=== PATIENT | female | born 1935 | race Caucasian/White ===

== ENCOUNTER → 2018-10-17 14:20 | Outpatient (CLI) | payer MEDICARE, OTHER, SELFPAY ==
[2018-10-17 15:35] LABS: Alanine Aminotransferase 77 IU/L (9-52); Albumin Globulin Ratio 1.5 (1.0-2.8); Alkaline Phosphatase 104 U/L (38-126); Aspartate Aminotransferase 107 IU/L (14-36); Bilirubin Total 0.5 mg/dL (0.2-1.3); Blood Urea Nitrogen 18 mg/dL (7-17); Calcium 9.5 mg/dL (8.4-10.2); Carbon Dioxide 28 mmol/L (22-32); Chloride 99 mmol/L (98-107); Estimated Glomerular Filt Rate > 60.0 mL/min (>60); Globulin 2.7 g/dL (1.7-4.1); Glucose 127 mg/dL (80-110); HEMOLYSIS < 15 (0-50); Potassium 4.5 mmol/L (3.4-5.1); Sodium 137 mmol/L (137-145); Total Protein 6.7 g/dL (6.3-8.2)
[2018-10-17 16:04] LABS: Thyroid Stimulating Hormone 2.31 uIU/mL (0.47-4.68)
== END ==
PROVIDERS: PCP Family Medicine; Visit Provider Internal Medicine Cardiovascular Disease
DX: I42.8 Other cardiomyopathies (principal)
CPT/HCPCS: 36415; 80053; 84443

== ENCOUNTER → 2019-06-25 09:06 | Outpatient (CLI) | payer MEDICARE, OTHER, SELFPAY ==
--- NOTE | 2019-06-25 | DI.ECHO.S_ITS ---
[place] +---------+ [facility] +---------+ : : [address] : : : : [id number] : : : : Phone: [phone]+ Echocardiogram Report + + :Name: AJIT JIN Study Date: 06/25/2019 Height: 63 in : :[facility] Weight: 120 lb : : Gender: Female BSA: 1.6 m2 : :: 1935 Age: 83 yrs BP: 108/58 mmHg: :Reason For Study: Heart Failure : : Performed By: Lilia Miller : :Referring: TAHMINA CONNER : + + Interpretation Summary Left ventricular ejection fraction is estimated to be 30 +/- 5%. Global longitudinal peak systolic strain average of -15.1%. Diastolic parameters suggest a pseudonormalization pattern, consistent with probable elevated filling pressures. There is mild to moderate mitral regurgitation. There is mild aortic regurgitation. There is mild tricuspid regurgitation. Procedure: A two-dimensional transthoracic echocardiogram with color flow and Doppler was performed. There is no prior echocardiogram noted for this patient. The study quality was technically good. The patient was in normal sinus rhythm during the exam. Left Ventricle: The left ventricle is mildly dilated. There is normal left ventricular wall thickness. Left ventricular ejection fraction is estimated to be 30 +/- 5%. Global longitudinal peak systolic strain average of -15.1%. Diastolic parameters suggest a pseudonormalization pattern, consistent with probable elevated filling pressures. Right Ventricle: The right ventricle is normal in size and function. Atria: The left atrium is mildly dilated. Right atrial size is normal. There is no Doppler evidence for an interatrial shunt. Mitral Valve: The mitral valve is normal in structure and function. There is mild mitral annular calcification. There is mild to moderate mitral regurgitation. Aortic Valve: The aortic valve is trileaflet. The aortic valve opens well. There is no aortic valve stenosis. There is mild aortic regurgitation. Tricuspid Valve: The tricuspid valve is normal in structure and function. There is mild tricuspid regurgitation. The right ventricular systolic pressure is estimated to be at least 20 mmHg based on an estimated right atrial pressure of 3 mm Hg. Pulmonic Valve: The pulmonic valve is normal in structure and function. There is no pulmonic valvular regurgitation. Great Vessels: The aortic root is normal size. The dimensions of the ascending aorta are normal. The IVC is of normal diameter and collapses greater than 50% with a sniff. This suggests a low right atrial pressure of 3 mm Hg. Pericardium/ Pleura There is no pericardial effusion. There is no pleural effusion. MMode/2D Measurements & Calculations LVIDd: 5.3 cm LVOT diam: 2.0 cm EPSS: 1.4 cm Ao root diam: 2.8 cm IVSd: 0.96 cm asc Aorta Diam: 3.3 cm LVPWd: 0.70 cm LV blanchard. diameter/BSA (cm/m^2): 3.4 LA A2 area: 22.4 cm2 RA long axis: 4.7 cm LA A4 area: 13.2 cm2 RA area: 12.4 cm2 LA length (vol): 4.7 cm RA vol: 27.5 ml LA vol: 53.8 ml RA : 17.7 ml/m2 LA vol index: 34.6 ml/m2 IVC diam: 0.95 cm RVD1 (basal): 3.0 cm TAPSE: 1.9 cm Doppler Measurements & Calculations Ao V2 max: 174.9 cm/sec LVOT Max Jovi: 72.1 cm/sec Ao V2 mean: 56.5 cm/sec LV V1 max P.1 mmHg Ao max P.2 mmHg LV V1 VTI: 17.2 cm Ao mean P.1 mmHg QIAN(I,D): 1.3 cm2 Ao V2 VTI: 38.4 cm QIAN(V,D): 1.2 cm2 sev ratio: 0.45 QIAN indexed to BSA (cm^2/m^2): 0.86 AI P1/2t: 1109 msec AI dec slope: 101.6 cm/sec2 MV E max jovi: 65.3 cm/sec TR max jovi: 208.4 cm/sec MV A max jovi: 71.8 cm/sec TR max P.4 mmHg MV E/A: 0.91 PA V2 max: 74.1 cm/sec Med Peak E' Jovi: 4.3 cm/sec PA V2 mean: 49.7 cm/sec E/E' med: 15.2 PA mean P.1 mmHg Lat Peak E' Jvoi: 3.5 cm/sec PA pr(Accel): 16.2 mmHg E/E' lat: 18.8 E/e' average: 17.0 MV dec time: 0.28 sec MVA(VTI): 1.7 cm2 MR ERO: 0.12 cm2 MV V2 mean: 51.1 cm/sec MR PISA: 1.8 cm2 MV mean P.2 mmHg MR flow rate: 57.5 cm3/sec MV V2 VTI: 30.6 cm MR PISA radius: 0.54 cm SV(LVOT): 51.4 ml Reading Physician:11:26 AM
== END ==
PROVIDERS: PCP Family Medicine; Referring Provider Internal Medicine Cardiovascular Disease; Visit Provider Internal Medicine Cardiovascular Disease
DX: I08.3 Combined rheumatic disorders of mitral, aortic and tricuspid valves (principal); I50.9 Heart failure, unspecified
CPT/HCPCS: 93306

== ENCOUNTER → 2019-11-20 09:16 | Outpatient (CLI) | payer MEDICARE, OTHER, SELFPAY ==
--- NOTE | 2019-11-20 09:35 | DI.ECHO.S_ITS ---
Echocardiogram Report + + :Name: AJIT JIN Study Date: 11/20/2019 Height: 63 in : :[facility] Weight: 130 lb : : Gender: Female BSA: 1.6 m2 : :: 1935 Age: 84 yrs BP: 128/61 mmHg: :Reason For Study: CARDIOMYOPATHY : :Ordering Physician: JOYCE, : :MASON Performed By: Lilia Miller : :Referring: MASON COOK : + + Interpretation Summary The left ventricle is normal in size and wall thickness. The ejection fraction is estimated to be 40-45%. Compared to the prior exam, the left ventricular function is improved. Diastolic parameters suggest a pseudonormalization pattern, consistent with probable elevated filling pressures. The right ventricle is normal in size and function. There is moderate mitral regurgitation. The mitral regurgitant jet is eccentrically directed. Compared to the prior echo study, there has been an increase in the severity of mitral regurgitation. There is mild tricuspid regurgitation. Pulmonary artery pressures cannot be estimated because of the lack of a measurable TR jet velocity but the IVC suggests a CVP of around 3 mmHg. Procedure: A two-dimensional transthoracic echocardiogram with color flow and Doppler was performed. The study quality was technically adequate. Comparison is made with the echocardiogram of 06/25/2019. The patient was in normal sinus rhythm during the exam. The patient had a bundle branch block rhythm during the exam. Left Ventricle: The left ventricle is normal in size and wall thickness. There is no thrombus. The ejection fraction is estimated to be 40-45%. Left ventricular global longitudinal strain average is 17.0%. Compared to the prior exam, the left ventricular function is improved. There is mild global hypokinesis of the left ventricle. Diastolic parameters suggest a pseudonormalization pattern, consistent with probable elevated filling pressures. Right Ventricle: The right ventricle is normal in size and function. Atria: The left atrium is severely dilated. The left atrium has significantly increased in size since the prior echo exam. Right atrial size is normal. There is no Doppler evidence for an interatrial shunt. Mitral Valve: There is mild to moderate mitral annular calcification. The mitral valve leaflets are mildly calcified. The mitral valve chordae are thickened and/or calcified. There is moderate mitral regurgitation. The mitral regurgitant jet is eccentrically directed. Compared to the prior echo study, there has been an increase in the severity of mitral regurgitation. Aortic Valve: The aortic valve is trileaflet. The aortic valve opens well. There is no aortic valve stenosis. There is trace aortic regurgitation. Tricuspid Valve: The tricuspid valve is normal. Pulmonary artery pressures cannot be estimated because of the lack of a measurable TR jet velocity but the IVC suggests a CVP of around 3 mmHg. There is mild tricuspid regurgitation. Pulmonic Valve: The pulmonic valve leaflets are thin and pliable; valve motion is normal. There is no pulmonic valvular regurgitation. Great Vessels: The aortic root is normal size. The ascending aorta is normal in size. The IVC is of normal diameter and collapses greater than 50% with a sniff. This suggests a low right atrial pressure of 3 mm Hg. Pericardium/ Pleura There is no pericardial effusion. There is no pleural effusion. MMode/2D Measurements & Calculations LVIDd: 4.8 cm LVOT diam: 2.1 cm LVIDs: 4.1 cm Ao root diam: 2.9 cm FS: 16.2 % asc Aorta Diam: 3.2 cm EPSS: 1.6 cm Ao Arch Diam (Prox Trans): 2.4 cm IVSd: 0.88 cm LVPWd: 0.84 cm LV blanchard. diameter/BSA (cm/m^2): 3.0 LV sys. diameter/BSA (cm/m^2): 2.5 LA A2 area: 24.7 cm2 RA long axis: 4.9 cm LA A4 area: 25.7 cm2 RA area: 14.1 cm2 LA length (vol): 5.9 cm RA vol: 34.2 ml LA vol: 90.8 ml RA : 21.2 ml/m2 LA vol index: 56.4 ml/m2 IVC diam: 0.71 cm RVD1 (basal): 3.0 cm TAPSE: 1.8 cm Doppler Measurements & Calculations Ao V2 max: 181.7 cm/sec LVOT Max Jovi: 73.6 cm/sec Ao V2 mean: 121.6 cm/sec LV V1 max P.2 mmHg Ao max P.2 mmHg LV V1 VTI: 17.9 cm Ao mean P.9 mmHg QIAN(I,D): 1.4 cm2 Ao V2 VTI: 44.1 cm QIAN(V,D): 1.4 cm2 sev ratio: 0.41 QIAN indexed to BSA (cm^2/m^2): 0.87 MV E max jovi: 89.9 cm/sec PA V2 max: 81.5 cm/sec MV A max jovi: 71.5 cm/sec PA V2 mean: 56.6 cm/sec MV E/A: 1.3 PA mean P.5 mmHg Med Peak E' Jovi: 3.3 cm/sec PA pr(Accel): 34.5 mmHg E/E' med: 27.2 Lat Peak E' Jovi: 5.4 cm/sec E/E' lat: 16.7 E/e' average: 22.0 MV dec time: 0.26 sec SV(LVOT): 61.8 ml Reading Physician:06:43 PM
== END ==
PROVIDERS: PCP Family Medicine; Referring Provider Internal Medicine Cardiovascular Disease; Visit Provider Internal Medicine Cardiovascular Disease
DX: I08.1 Rheumatic disorders of both mitral and tricuspid valves (principal); I42.8 Other cardiomyopathies
CPT/HCPCS: 93306

== ENCOUNTER → 2020-09-16 15:57 | Outpatient (CLI) | payer MEDICARE, OTHER, SELFPAY ==
--- NOTE | 2020-09-16 | DI.ECHO.S_ITS ---
[place] +---------+ Hospital +---------+ : : [address] : [address] : : : : [id number] : : : : Phone: [phone] +---------+ Echocardiogram Report + + :Name: AJIT JIN Study Date: 09/16/2020 Height: 63 in : :[facility] ReadingLocation: Weight: 135 lb : : Gender: Female BSA: 1.6 m2 : :: 1935 Age: 84 yrs BP: 147/71 mmHg: :Reason For Study: PAROXYSMAL ATRIAL FIBRILLATION : :Ordering Physician: JOYCE, : :MASON Johnson Performed By: Lilia Miller : :Referring: MASON COOK : + + Interpretation Summary The ejection fraction is estimated to be 40-45%. Inferolateral inferoseptal and mild anterolateral hypokinesis. There is moderate mitral regurgitation. The mitral regurgitant jet is eccentrically directed. Compared to the prior echo study, there has been an increase in the severity of mitral regurgitation. There is mild aortic regurgitation. Procedure: A two-dimensional transthoracic echocardiogram with color flow and Doppler was performed. The study quality was technically adequate. Comparison is made with the echocardiogram of 11/20/2019. The patient was in sinus rhythm with heart rates between 58-68 bpm during the exam. Left Ventricle: The left ventricle is normal in size and wall thickness. The ejection fraction is estimated to be 40-45%. There has been no significant change since the previous exam. Inferolateral inferoseptal and mild anterolateral hypokinesis. Right Ventricle: The right ventricle is normal in size and function. Atria: The left atrium is moderately dilated. Right atrial size is normal. There is no Doppler evidence for an interatrial shunt. Mitral Valve: There is moderate mitral annular calcification. The mitral valve chordae are thickened and/or calcified. The mitral valve leaflets are mildly calcified. There is moderate mitral regurgitation. The mitral regurgitant jet is eccentrically directed. Compared to the prior echo study, there has been an increase in the severity of mitral regurgitation. Aortic Valve: The aortic valve is trileaflet. The aortic valve is mildly calcified. There is no aortic valve stenosis. There is mild aortic regurgitation. Tricuspid Valve: The tricuspid valve is normal in structure and function. There is mild tricuspid regurgitation. Pulmonary artery pressures cannot be estimated because of the lack of a measurable TR jet velocity but the IVC suggests a CVP of around 3 mmHg. Pulmonic Valve: The pulmonic valve leaflets are thin and pliable; valve motion is normal. There is no pulmonic valvular regurgitation. Great Vessels: The aortic root is normal size. The dimensions of the ascending aorta are normal. The IVC is of normal diameter and collapses greater than 50% with a sniff. This suggests a low right atrial pressure of 3 mm Hg. Pericardium/ Pleura There is no pericardial effusion. There is no pleural effusion. MMode/2D Measurements & Calculations LVIDd: 4.8 cm LVOT diam: 2.0 cm LVIDs: 3.8 cm Ao root diam: 3.0 cm FS: 22.2 % asc Aorta Diam: 3.0 cm IVSd: 0.96 cm Ao Arch Diam (Prox Trans): 2.3 cm LVPWd: 0.86 cm LV blanchard. diameter/BSA (cm/m^2): 3.0 LV sys. diameter/BSA (cm/m^2): 2.3 LA A2 area: 25.9 cm2 RA long axis: 5.3 cm LA A4 area: 20.2 cm2 RA area: 15.2 cm2 LA length (vol): 5.9 cm RA vol: 37.2 ml LA vol: 75.5 ml RA : 22.7 ml/m2 LA vol index: 46.1 ml/m2 IVC diam: 1.0 cm RVD1 (basal): 3.1 cm TAPSE: 1.9 cm Doppler Measurements & Calculations Ao V2 max: 185.9 cm/sec LVOT Max Jovi: 65.0 cm/sec Ao V2 mean: 125.6 cm/sec LV V1 max P.7 mmHg Ao max P.8 mmHg LV V1 VTI: 14.0 cm Ao mean P.1 mmHg QIAN(I,D): 1.0 cm2 Ao V2 VTI: 42.1 cm QIAN(V,D): 1.1 cm2 sev ratio: 0.33 QIAN indexed to BSA (cm^2/m^2): 0.64 AI P1/2t: 742.6 msec AI dec slope: 168.2 cm/sec2 Med Peak E' Jovi: 3.9 cm/sec PA V2 max: 88.1 cm/sec Lat Peak E' Jovi: 6.2 cm/sec PA V2 mean: 66.1 cm/sec MVA(VTI): 1.6 cm2 PA mean P.9 mmHg PA pr(Accel): 37.9 mmHg MV V2 mean: 49.1 cm/sec SV(LVOT): 43.9 ml MV mean P.1 mmHg MV V2 VTI: 27.7 cm Reading Physician:10:41 AM
== END ==
PROVIDERS: PCP Family Medicine; Referring Provider Internal Medicine Cardiovascular Disease; Visit Provider Internal Medicine Cardiovascular Disease
DX: I08.3 Combined rheumatic disorders of mitral, aortic and tricuspid valves (principal); I48.0 Paroxysmal atrial fibrillation; I42.8 Other cardiomyopathies
CPT/HCPCS: 93306

== ENCOUNTER → 2022-06-21 09:01 | Outpatient (CLI) | payer MEDICARE, OTHER, SELFPAY ==
--- NOTE | 2022-06-22 12:07 | PM.PFT.1 ---
Pulmonary Function Test Referral & Results Date Patient Seen: 06/21/22 Results: The spirometry demonstrates an FVC of 2.28 L which is 99% of predicted. The FEV1 was measured at 1.64 L which is 97% of predicted. The FEV1/FVC ratio was 72 which is 98% of predicted. Following the administration of bronchodilator there was no appreciable change to above normal numbers. Lung volumes show an SVC of 2.44 L which is 97% of predicted. The diffusing capacity was measured at 15.14 which is 64% of predicted. No hemoglobin value was provided, so no correction for potential anemia could be made, if appropriate. 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
== END ==
PROVIDERS: PCP Family Medicine; Referring Provider Internal Medicine Interventional Cardiology; Visit Provider Internal Medicine Interventional Cardiology
DX: I50.20 Unspecified systolic (congestive) heart failure (principal); Z87.891 Personal history of nicotine dependence; J98.8 Other specified respiratory disorders; R06.09 Other forms of dyspnea
CPT/HCPCS: 94060; 94726; 94729

== ENCOUNTER → 2023-05-29 14:50 | Outpatient (CLI) | payer MEDICARE, OTHER, SELFPAY ==
[2023-05-29 16:08] LABS: Add Manual Diff / Slide Review NO; Basophils Absolute Auto 0 /uL (0-100); Basophils Percent Auto 0.6 % (0-2); Eosinophils Absolute Auto 100 /uL (0-450); Eosinophils Percent Auto 1.9 % (2-4); Hematocrit 36.8 % (36-46); Hemoglobin 12.5 g/dL (12.0-16.0); Lymphocytes Absolute Auto 2000 /uL (1100-4500); Mean Corpuscular HGB Conc 33.9 % (30-36); Mean Corpuscular Volume 97.2 fL (80-100); Monocytes Absolute Auto 700 /uL (0-900); Monocytes Percent Auto 10.3 % (3-14); Neutrophils Absolute Auto 3900 /uL (1500-7000); Neutrophils Percent Auto 57.2 % (50-75); Platelet Count 302 X10^3/uL (150-400); Red Blood Cell Count 3.79 X10^6/uL (4.0-5.2); Red Cell Distribution Width 13.6 % (11.6-14.8); White Blood Cell Count 6.7 X10^3/uL (4.5-11.0)
[2023-05-29 16:37] LABS: Alanine Aminotransferase 32 IU/L (<35); Albumin 4.6 g/dL (3.5-5.0); Albumin Globulin Ratio 1.3 (1.0-2.8); Alkaline Phosphatase 84 U/L (38-126); Aspartate Aminotransferase 35 IU/L (14-36); BUN Creatinine Ratio 23.2 (6-22); Bilirubin Total 0.9 mg/dL (0.2-1.3); Blood Urea Nitrogen 23 mg/dL (7-17); Calcium 9.8 mg/dL (8.4-10.2); Carbon Dioxide 25 mmol/L (22-32); Chloride 100 mmol/L (98-107); Estimated Glomerular Filt Rate 56 mL/min (>60); Globulin 3.6 g/dL (1.7-4.1); Glucose 94 mg/dL (80-110); HEMOLYSIS < 15 (0-50); Potassium 4.6 mmol/L (3.4-5.1); Sodium 134 mmol/L (137-145); Total Protein 8.2 g/dL (6.3-8.2)
[2023-05-29 17:06] LABS: TSH w/ Reflex to FT4 2.86 uIU/mL (0.47-4.68)
== END ==
PROVIDERS: PCP Family Medicine; Referring Provider Internal Medicine Interventional Cardiology; Visit Provider Internal Medicine Interventional Cardiology
DX: Z51.81 Encounter for therapeutic drug level monitoring (principal); I48.0 Paroxysmal atrial fibrillation; Z79.899 Other long term (current) drug therapy; Z87.891 Personal history of nicotine dependence; J98.8 Other specified respiratory disorders
CPT/HCPCS: 36415; 80053; 84443; 85025; 94060; 94726; 94729

== ENCOUNTER 2024-05-05 22:02 | Emergency (ER) | payer MEDICARE, OTHER, SELFPAY ==
[2024-05-05] VITALS (7 sets, daily range): BP systolic 122–163; BP diastolic 70–88; PULSE 100–122; RESP 13–22; TEMP 36.6; O2SAT 97–99; BMI 21.7
--- NOTE | 2024-05-05 22:16 | DI.RAD.S_ITS ---
PROCEDURE: XR CHEST 1V INDICATIONS: chest pain TECHNIQUE: One view of the chest was acquired. COMPARISON: None. FINDINGS: Surgical changes and devices: None. Lungs and pleura: Blunting of left costophrenic angle. The lungs otherwise appear clear Mediastinum: Mediastinal contours appear normal. Heart size is prominent. Bones and chest wall: No suspicious bony lesions. Overlying soft tissues appear unremarkable. IMPRESSION: Heart size is prominent. Blunting of the left costophrenic angle, may represent atelectasis, small effusion or consolidation. Lungs are otherwise clear. Dictated by: Wolfgang Swann M.D. on 05/05/2024 at 22:40 Approved by: Wolfgang Swann M.D. on 05/05/2024 at 22:41
--- NOTE | 2024-05-05 22:24 | EKG_ITS ---
[place] [id number] [place] [id number] Test Date: 2024-05-05 Pat Name: Theresa Faustin Department: Room: Gender: Female [employer] Insulation: : 1935 Requested By: Order Number: [id number] Reading MD: Hunter Bray Measurements Intervals [place] Rate: 107 P: [place]: 256 QRS: -56 QRSD: 144 T: 91 QT: 336 QTc: 448 Interpretive Statements Sinus tachycardia with 1st degree AV block Left bundle branch block Electronically Signed On 05-06-2024 11:13:47 PST by Hunter Bray
[2024-05-05 22:26] LABS: Add Manual Diff / Slide Review NO; Basophils Absolute Auto 100 /uL (0-100); Basophils Percent Auto 1.2 % (0-2); Eosinophils Absolute Auto 100 /uL (0-450); Eosinophils Percent Auto 2.4 % (2-4); Hematocrit 33.9 % (36-46); Hemoglobin 11.8 g/dL (12.0-16.0); Lymphocytes Absolute Auto 1200 /uL (1100-4500); Lymphocytes Percent Auto 22.6 % (25-40); Mean Corpuscular HGB Conc 34.9 % (30-36); Mean Corpuscular Hemoglobin 33.7 PG (26-34); Mean Corpuscular Volume 96.7 fL (80-100); Monocytes Absolute Auto 500 /uL (0-900); Monocytes Percent Auto 8.6 % (3-14); Neutrophils Absolute Auto 3500 /uL (1500-7000); Neutrophils Percent Auto 65.2 % (50-75); Platelet Count 315 X10^3/uL (150-400); Red Cell Distribution Width 12.4 % (11.6-14.8); White Blood Cell Count 5.4 X10^3/uL (4.5-11.0)
[2024-05-05 22:36] LABS: INR 1.2 (0.9-1.3); Prothrombin Time 13.3 SECONDS (9.4-12.5)
[2024-05-05 22:39] LABS: PTT Partial Thromboplastin Tim 38 SECONDS (25.1-36.5)
[2024-05-05 22:40] LABS: Alanine Aminotransferase 34 IU/L (<35); Albumin 4.3 g/dL (3.5-5.0); Albumin Globulin Ratio 1.4 (1.0-2.8); Alkaline Phosphatase 79 U/L (38-126); Aspartate Aminotransferase 47 IU/L (14-36); BUN Creatinine Ratio 18.4 (6-22); Bilirubin Total 0.8 mg/dL (0.2-1.3); Blood Urea Nitrogen 14 mg/dL (7-17); Calcium 9.4 mg/dL (8.4-10.2); Carbon Dioxide 25 mmol/L (22-32); Chloride 100 mmol/L (98-107); Creatine Kinase 64 U/L (30-135); Estimated Glomerular Filt Rate > 60 mL/min (>60); Glucose 100 mg/dL (80-110); HEMOLYSIS 98 (0-50); Lipase 95 U/L (23-300); Magnesium 1.9 mg/dL (1.6-2.3); Potassium 4.3 mmol/L (3.4-5.1); Sodium 131 mmol/L (137-145); Total Protein 7.3 g/dL (6.3-8.2)
[2024-05-05 22:46] LABS: Appearance Urine UA CLEAR; Bilirubin Urine UA NEGATIVE (NEGATIVE); Color Urine UA YELLOW; Glucose Urine UA NEGATIVE (Negative); Ketones Urine UA TRACE (NEGATIVE); Leukocyte Esterase Urine UA NEGATIVE (NEGATIVE); Nitrite Urine UA NEGATIVE (Negative); Occult Blood Urine UA TRACE-INTACT (Negative); Protein Urine UA NEGATIVE (Negative); Specific Gravity Urine UA <=1.005 (1.000-1.035); Urobilinogen Urine UA 0.2 E.U./dL (0.2)
[2024-05-05 22:51] LABS: NT-proBNP (BNP-Adult 18+) 6210 pg/mL (<450); Troponin I 0.022 ng/mL (0.01-0.034)
[2024-05-05 22:55] LABS: Bacteria Urine None Seen; Culture Indicated Urine Cult Not Indicated; RBC Urine None Seen (0-5/HPF); Squamous Epithelial Cell Urine None Seen (0-5/HPF); Urine Volume 10mL (spun); WBC Urine None Seen (0-5/HPF)
[2024-05-06] VITALS (16 sets, daily range): BP systolic 116–179; BP diastolic 69–83; PULSE 105–119; RESP 15–23; O2SAT 93–99
--- NOTE | 2024-05-06 00:40 | ED_ITS ---
HPI - Arrhythmia/Palpitations General Chief Complaint: Arrhythmia/Palpitations Stated Complaint: Afib Time Seen by Provider: 05/06/24 00:39 Source: EMS Mode of arrival: EMS History of Present Illness HPI narrative: Patient is a 88-year-old female with a past medical history paroxysmal AFib, diverticulitis, medics state at that time they checked her heart rate which was in the 130s, they did not give any medications for this, they state that this was because she was recently admitted at [facility] 2 weeks ago after cardioversion and there was some pleural effusion noted on her imaging. Patient states that she has not having any chest pain shortness breath palpitation fever chills nausea vomiting abdominal pain or any other GI/ symptoms time. She states that she feels fine but called medics because she noticed that her heart rate was in the 130s but did not stay that way and they instructed/recommended patient be evaluated in the emergency department. Patient states that she has recent cardiology appointment proximally 2 days ago and is supposed to follow up again in the next few days. Related Data Home Medications Medication Instructions Recorded Confirmed Fish Oil 1,000 mg PO QDAY ##0 05/08/11 cholecalciferol (vitamin D3) 25 1,000 unit PO QDAY ##0 05/08/11 mcg (1,000 unit) tablet (Vitamin D3) aspirin 81 mg tablet,delayed 81 mg PO QDAY ##0 08/12/12 07/31/17 release losartan 25 mg tablet 25 mg PO QDAY ##0 08/12/12 magnesium oxide 400 mg (241.3 mg 400 mg PO QDAY ##0 11/30/15 magnesium) tablet albuterol sulfate 90 mcg/actuation 2 puff INH PRN PRN ##0 03/06/17 aerosol inhaler (Ventolin HFA) ascorbic acid (vitamin C) 500 mg 1,000 mg PO QDAY ##0 03/06/17 tablet azelastine 137 mcg (0.1 %) nasal 2 spray intranasal BID ##0 03/06/17 spray carvedilol 3.125 mg tablet (Coreg) 3.125 mg PO BID ##0 03/06/17 coenzyme Q10 100 mg capsule (Co 300 mg PO QDAY ##0 03/06/17 Q-10) fluticasone propionate 50 2 spray intranasal QDAY ##0 03/06/17 mcg/actuation nasal spray,suspension (Flonase Allergy Relief) metoprolol tartrate 25 mg tablet 25 mg PO BID ##0 03/06/17 07/31/17 multivitamin (Multiple Vitamins 1 tab PO QDAY ##0 03/06/17 tablet) Previous Rx's Medication Instructions Recorded diclofenac sodium 1 % topical gel 0 topical QID #100 % 02/18/16 (Voltaren) montelukast 10 mg tablet 10 mg PO QDAY #90 tabs 09/25/16 (Singulair) amoxicillin 875 mg-potassium 875 mg PO BID #180 tabs 03/07/17 clavulanate 125 mg tablet (Augmentin) hydrocodone 5 mg-acetaminophen 325 1 tab PO Q4HP PRN #14 tabs 03/07/17 mg tablet ([place]) Allergies Allergy/AdvReac Type Severity Reaction Status Date / Time prednisone [PREDNISONE] Allergy Severe PANCREATITI Unverified 06/20/17 11:46 S levofloxacin [From LEVAQUIN] Allergy Unknown SEVER Unverified 06/20/17 11:46 JOINT PAIN Review of Systems Review of Systems Narrative: General: Denies fever, chills, weight loss HEENT: Denies headache, eye drainage, eye irritation, head trauma, sore throat, voice change Cardiovascular: Positive palpitations Denies any chest pain, shortness of breath, tachycardia Respiratory: Denies any shortness of breath, cough, wheeze, stridor GI/: Denies any abdominal pain, nausea, vomiting, diarrhea, bright red blood per rectum, melanotic stools, urinary frequency, urinary retention, dysuria, hematuria MSK: Denies any joint pain, muscle pains, swelling Skin: Denies any rashes, lesions, discoloration Neuro: Denies any headache, lightheadedness, dizziness, fainting, weakness Psych: Denies SI/HI Patient History Social History household members: spouse Exam Narrative Exam Narrative: General: Cooperative, comfortable, well-developed, not in acute distress HEENT: Normocephalic, atraumatic, PERRLA, normal sclera, eyelids normal, Neck: Active full range of motion, atraumatic Chest: Normal to inspection, negative crepitus, no overlying erythema ecchymosis Respiratory: Normal respiratory effort, not in acute respiratory distress, clear to auscultation bilaterally negative cough, wheeze, tachypnea, rhonchi, rales Cardiology: Irregularly irregular negative gallop, murmur, rubs GI/: Normal to inspection, soft, nonrigid, no tenderness to palpation, exam deferred MSK: Full range of active range of motion of all 4 extremities, atraumatic Skin: No rashes lesions noted Neuro: Alert awake oriented x3, moves all 4 extremities spontaneously, cranial nerves intact, able to answer all questions appropriately follows commands appropriately Psych: Cooperative, negative suicidal or homicidal ideations Initial Vital Signs Initial Vital Signs: Vital Signs Temperature 97.9 F 05/05/24 22:04 Pulse Rate 110 H 05/05/24 22:04 Respiratory Rate 20 05/05/24 22:04 Blood Pressure 143/88 H 05/05/24 22:04 Pulse Oximetry 99 05/05/24 22:04 Oxygen Delivery Method Room Air 05/05/24 22:04 Course Orders Ordered: ED Orders 05/05/24 22:12 Complete Blood Count AUTO DIFF Stat Comprehensive Metabolic Panel Stat Lipase Stat Magnesium Stat NT-proBNP (BNP-Adult 18+) Stat PTT Partial Thromboplastin [place] Stat Prothrombin Time INR Stat Troponin & CK Cardiac Panel Stat 05/05/24 22:16 XR chest 1V Stat EKG-12 Lead Stat 05/05/24 22:36 Urinalysis and Microscopic Stat Discontinued Medications Aspirin (Aspirin 81 Mg Chew Tab) 324 mg PO NOW ONE Stop: 05/05/24 22:17 Vital Signs Vital signs: Vital Signs - 8 hr 05/05/24 22:04 05/05/24 22:12 05/05/24 22:13 Temperature 97.9 F Pulse Rate 110 H 100 H Respiratory Rate 20 20 Blood Pressure 143/88 H 143/88 H Pulse Oximetry 99 Oxygen Delivery Method Room Air 05/05/24 22:13 05/05/24 22:38 05/05/24 22:40 Temperature Pulse Rate 109 H 122 H 112 H Respiratory Rate 17 21 22 Blood Pressure Pulse Oximetry 97 99 Oxygen Delivery Method Room Air 05/05/24 22:40 05/05/24 23:00 05/05/24 23:00 Temperature Pulse Rate 115 H Respiratory Rate 13 Blood Pressure 163/82 H 149/70 H Pulse Oximetry 97 Oxygen Delivery Method 05/05/24 23:30 05/05/24 23:30 05/06/24 00:00 Temperature Pulse Rate 111 H Respiratory Rate 21 Blood Pressure 122/79 136/72 Pulse Oximetry 97 Oxygen Delivery Method 05/06/24 00:00 Temperature Pulse Rate 111 H Respiratory Rate 19 Blood Pressure Pulse Oximetry 96 Oxygen Delivery Method MDM - Arrhythmia/Palpitations Differential Diagnosis Differential diagnosis: Likely palpitations, sinus tachycardia, artial fibrillation, artial flutter, ventricular premature beats and other (ACS, pneumonia, electrolyte abnormality) Lab Data 05/05/24 22:12 05/05/24 22:12 Labs: Lab Results 05/05/24 05/05/24 Range/Units 22:12 22:36 WBC 5.4 (4.5-11.0) X10^3/uL RBC 3.50 L (4.0-5.2) X10^6/uL Hgb 11.8 L (12.0-16.0) g/dL Hct 33.9 L (36-46) % MCV 96.7 (80-100) fL MCH 33.7 (26-34) PG MCHC 34.9 (30-36) % RDW 12.4 (11.6-14.8) % Plt Count 315 (150-400) X10^3/uL Neut % (Auto) 65.2 (50-75) % Lymph % (Auto) 22.6 L (25-40) % [place] % (Auto) 8.6 (3-14) % Eos % (Auto) 2.4 (2-4) % Baso % (Auto) 1.2 (0-2) % Neut # (Auto) 3500 (7596-7123) /uL Lymph # (Auto) 1200 (7032-5523) /uL [place] # (Auto) 500 (0-900) /uL Eos # (Auto) 100 (0-450) /uL Baso # (Auto) 100 (0-100) /uL PT 13.3 H (9.4-12.5) SECONDS INR 1.2 (0.9-1.3) APTT 38 H (25.1-36.5) SECONDS Sodium 131 L (137-145) mmol/L Potassium 4.3 (3.4-5.1) mmol/L Chloride 100 (98-107) mmol/L Carbon Dioxide 25 (22-32) mmol/L BUN 14 (7-17) mg/dL Creatinine 0.76 (0.52-1.04) mg/dL Estimated GFR > 60 (>60) mL/min BUN/Creatinine Ratio 18.4 (6-22) Glucose 100 (80-110) mg/dL Calcium 9.4 (8.4-10.2) mg/dL Magnesium 1.9 (1.6-2.3) mg/dL Total Bilirubin 0.8 (0.2-1.3) mg/dL AST 47 H (14-36) IU/L ALT 34 (<35) IU/L Alkaline Phosphatase 79 (38-126) U/L Total Creatine Kinase 64 (30-135) U/L Troponin I 0.022 (0.01-0.034) ng/mL NT-Pro-B Natriuret Pep 6210 H (<450) pg/mL Total Protein 7.3 (6.3-8.2) g/dL Albumin 4.3 (3.5-5.0) g/dL Globulin 3.0 (1.7-4.1) g/dL Albumin/Globulin Ratio 1.4 (1.0-2.8) Lipase 95 (23-300) U/L Urine Color Yellow Urine Appearance Clear Urine pH 6.0 (4.5-8.0) Ur Specific [place] <=1.005 (1.000-1.035) Urine Protein Negative (Negative) Urine Glucose (UA) Negative (Negative) g/dL Urine Ketones Trace H (NEGATIVE) Urine Occult Blood Trace-intact (Negative) Urine Nitrate Negative (Negative) Urine Bilirubin Negative (NEGATIVE) Urine Urobilinogen 0.2 (0.2) E.U./dL Ur Leukocyte Esterase Negative (NEGATIVE) Urine RBC None seen (0-5/HPF) Urine WBC None seen (0-5/HPF) Ur Squamous Epith Cells None seen (0-5/HPF) Urine Bacteria None seen (None) Ur Culture Indicated? Cult not indicated Vol Urine Centrifuged 10ml (spun) Imaging Data Chest x-ray: Radiologist's Impresson: [address] [address] XRay Report Signed Patient: Theresa Faustin MR#: [id number] : 1935 Acct:[id number] Age/Sex: 88 / F Date of Service: 05/05/24 Loc: ED Accession Number: [id number] Procedure: XR chest 1V Ordering Provider: José Manuel Mandujano D.O. PROCEDURE: XR CHEST 1V INDICATIONS: chest pain TECHNIQUE: One view of the chest was acquired. COMPARISON: None. FINDINGS: Surgical changes and devices: None. Lungs and pleura: Blunting of left costophrenic angle. The lungs otherwise appear clear Mediastinum: Mediastinal contours appear normal. Heart size is prominent. Bones and chest wall: No suspicious bony lesions. Overlying soft tissues appear unremarkable. IMPRESSION: Heart size is prominent. Blunting of the left costophrenic angle, may represent atelectasis, small effusion or consolidation. Lungs are otherwise clear. ECG Data Interpretation: EKG interpreted ED physician, sinus 107 beats per minute QTC 448, left bundle branch block noted, nonspecific ST changes no STEMI MDM Narrative Medical decision making narrative: 88-year-old female with a history of AFib on Eliquis, hypertension, comes into the ED via EMS from [place] for evaluation of palpitations, states that she was in the palpitation instruct her heart rate is in the 130s, she states it did not stay there but did call medics and they recommended she be evaluated in the emergency department. She states that she was at [place] approximately 2 weeks ago that did require cardioversion as well as pleurocentesis, she states that they do not know why this happened. She states that she does have an appointment with her jewel bearing turner at [facility] in the next few days. Patient was monitored here for several hours, patient has not gone into rapid AFib, has maintained in the 90s to 110s, we will give patient's home dose of medication of rate control here as well as magnesium to prevent patient going into rapid AFib. Troponin negative patient with elevated BNP chest x-ray showing possible trace pleural effusion however patient not requiring any supplemental oxygen patient does not appear fluid overload did recommend patient take dose of Lasix however she states that she was told better jewel bearing turner only take it if her weight fluctuates by 2 lb had it has not therefore she would like to decline taking this here at this time. Patient was given strict return precautions she verbalized understanding of this and agrees to being discharged home with outpatient follow up with her primary care doctor and jewel bearing turner. Discharge Plan Departure Patient Disposition: Home Clinical Impression: A-fib Instructions: DI for Atrial Fibrillation Activity Restrictions/Additional Instructions: Please follow up with your jewel bearing turner and your primary care doctor Please read the discharge instructions sheet carefully and bring all papers to all doctor follow-up visits, as it may contain information that your doctor may want to see. Disease processes change and evolve, if your symptoms worsen or if you develop any new symptoms that are concerning to you please return for evaluation. Your evaluation today does not show any evidence of any life- threatening/serious illnesses requiring admission to the hospital or surgery. Please follow-up with your doctor for re-evaluation in approximately 1 day. Seek immediate medical attention for any worrisome symptoms. *If you do not have a primary care provider please contact the [facility] Resource line at [phone]. They will ask some questions about your medical history and help get you set up with a doctor in the community. Prescriptions: No Action cholecalciferol (vitamin D3) [Vitamin D3] 1,000 UNIT tablet 1,000 unit PO QDAY Qty: 0 Fish Oil 1,000 mg PO QDAY Qty: 0 losartan 25 MG tablet 25 mg PO QDAY Qty: 0 aspirin 81 MG tablet,delayed release (DR/EC) 81 mg PO QDAY Qty: 0 magnesium oxide 400 MG tablet 400 mg PO QDAY Qty: 0 diclofenac sodium [Voltaren] 1 % gel 0 Topical QID Qty: 100 5RF montelukast [Singulair] 10 MG tablet 10 mg PO QDAY Qty: 90 0RF albuterol sulfate [Ventolin HFA] 90 MCG/PUFF HFA aerosol inhaler 2 puff INH PRN PRNQty: 0 azelastine 137 MCG/0.137 ML aerosol,spray 2 spray Intranasal BID Qty: 0 carvedilol [Coreg] 3.125 MG tablet 3.125 mg PO BID Qty: 0 Patient Comments: Pt DOES NOT TAKE THIS MEDICATION metoprolol tartrate 25 MG tablet 25 mg PO BID Qty: 0 multivitamin [Multiple Vitamins] 1 EACH tablet 1 tab PO QDAY Qty: 0 fluticasone propionate [Flonase Allergy Relief] 9.9 ML spray,suspension 2 spray Intranasal QDAY Qty: 0 coenzyme Q10 [Co Q-10] 100 MG capsule 300 mg PO QDAY Qty: 0 ascorbic acid (vitamin C) 500 MG tablet 1,000 mg PO QDAY Qty: 0 amoxicillin-pot clavulanate [Augmentin] 875 MG/125 MG tablet 875 mg PO BID Qty: 180 0RF hydrocodone-acetaminophen [[place]] 5 MG/325 MG tablet 1 tab PO Q4HP PRNQty: 14 0RF Referrals: Isidro Jain MD [Primary Care Provider] - Stand Alone Forms: Patient Portal/API/Survey
[2024-05-06] MEDS: METOPROLOL ER 25 MG TABLET PO (01:08)
[2024-05-06] MEDS: MAGNESIUM SULFATE 2 GM/50 ML PIGGYBACK IV (01:09)
== END 2024-05-06 06:25 | disposition home or self-care (01) ==
PROVIDERS: Emergency Provider Student in an Organized Health Care Education/Training Program; PCP Family Medicine
DX: I48.0 Paroxysmal atrial fibrillation (principal); R07.9 Chest pain, unspecified; I44.7 Left bundle-branch block, unspecified; Z79.01 Long term (current) use of anticoagulants
CPT/HCPCS: 36415; 71045; 80053; 81001; 82550; 83690; 83735; 83880; 84484; 85025; 85610; 85730; 93005; 96365; 99284; J3475

== ENCOUNTER → 2024-08-12 09:57 | Outpatient (CLI) | payer MEDICARE, OTHER, SELFPAY ==
[2024-08-12 11:31] LABS: BUN Creatinine Ratio 20.8 (6-22); Blood Urea Nitrogen 22 mg/dL (7-17); Calcium 9.5 mg/dL (8.4-10.2); Carbon Dioxide 28 mmol/L (22-32); Chloride 97 mmol/L (98-107); Estimated Glomerular Filt Rate 51 mL/min (>60); Glucose 115 mg/dL (70-99); HEMOLYSIS < 15 (0-50); Potassium 4.5 mmol/L (3.4-5.1); Sodium 136 mmol/L (137-145)
== END ==
LOC: LAB 10:00
PROVIDERS: PCP Family Medicine; Referring Provider Nurse Practitioner; Visit Provider Nurse Practitioner
DX: I48.4 Atypical atrial flutter (principal)
CPT/HCPCS: 36415; 80048

== ENCOUNTER → 2025-01-06 19:19 | Outpatient (ROUT) | payer MEDICARE, OTHER, SELFPAY | PROVIDERS: PCP Family Medicine; Visit Provider Registered Nurse | DX: L03.90 Cellulitis, unspecified (principal); R21 Rash and other nonspecific skin eruption; Z79.899 Other long term (current) drug therapy | CPT/HCPCS: 87070; 87075; 87205 ==